=== PATIENT | male | born 1950 | race Caucasian/White ===

== ENCOUNTER 2024-01-20 15:09 | Emergency (ER) | payer MEDICARE, OTHER, SELFPAY ==
[2024-01-20 15:10] VITALS: BP 178/76
--- NOTE | 2024-01-20 16:18 | ED.GENMED ---
History of Present Illness
General
Chief Complaint: Post Operative Problem(s)
Source: patient
Exam Limitations: none
Time Seen by Provider: 01/20/24 15:41
Nursing documentation reviewed up to this point in time: agreed with
Travel History
Have you had any contact with someone who has COVID-19?: No
Do you have any symptoms of coronavirus? Fever > 100 degrees, chills, cough, shortness of breath, sore throat, loss of taste or smell, muscle aches, or headache?: No
History of Present Illness
History of Present Illness:
73 yr old male presents to the ER for evaluation. Patient reports he had varicose vein surgery 3 days ago and today removed dressing and wound started bleeding. He reports he is on Eliquis for A-fib. He denies any pain.
Past History
Past History
ED Past Medical History: HTN and Hypercholesterolemia
ED Past Surgical History: Orthopedic and Tonsilectomy
Social History
Tobacco: Non-smoker
Review of Systems
Review of Systems
Allergies reviewed?: Yes
All Other Systems: ROS reviewed and negative except as documented in HPI and ROS
Constitutional: Reports no symptoms; Denies fever
Musculoskeletal: Reports no symptoms
Skin: Reports other (bleeding from right lower leg wound )
Neurological: Reports no symptoms
Psychiatric: Reports no symptoms
Phy Exam
General Physical Exam
General Presentation: no apparent distress
General age: appears stated age
General Skin: warm and dry
General Habitus: elderly
General Mental: alert
General Hydration: appears well hydrated
Neurological Exam
Neurological Exam: alert and oriented x3
Musculoskeletal Exam
Musculoskeletal Exam: full ROM and other (right lower leg with 1 cm open bleeding wound strong distal pulses + multiple varicosities to right leg )
Skin Exam
Skin Exam: normal color and warm/dry
Psychiatric Exam
Psychiatric Exam: normal mood/affect
Course
Vital Signs
Initial and Last Documented VS:
Initial Vital Signs
Temp Pulse Resp BP Pulse Ox
98.2 F 69 18 178/76 97
01/20/24 15:10 01/20/24 15:10 01/20/24 15:10 01/20/24 15:10 01/20/24 15:10
Last Documented Vital Signs
Temp Pulse Resp BP Pulse Ox
98.2 F 69 18 178/76 97
01/20/24 15:10 01/20/24 15:10 01/20/24 15:10 01/20/24 15:10 01/20/24 15:10
Procedures
Laceration Closure
Right Lower Leg:
Status of Wound: clean
Size of Wound in cm: 1
Description of Wound Edges: sharp
Preparation: cleaned with saline
Anesthesia: 1% Lidocaine with epi
Revision/Debridement: routine- no revision and irrigate-direct pressure
Skin Closure Material: 4-0 nylon
Number of sutures: 3
MDM/Problems Addressed
Differential Diagnosis Includes:
not limited to: bleeding wound
MDM/Problems Addressed:
Patient is a 73-year-old male who has history of varicose veins and had surgery to repair right lower leg varicose vein and removed Steri-Strips today reports wound open. He presented with proximal 1 cm what looks like laceration to the right lower
leg actively bleeding. This was repaired with sutures to close wound. Patient was monitored here no further bleeding.
Will DC back to varicose vein specialist.
Chronic conditions affecting care:
hx of multiple wounds
*Pulse Oximetry
Patient hypoxic: no
*Critical Care Note
Total Time (30-74mins, 75-104mins- exclusive of procedures): Not Applicable
ED Attending Note
-
Portions of this chart may have been created with voice recognition software.� Occasional wrong word or��sound alike� substitutions may have occurred due to the inherent limitations of voice recognition software.
Discharge Plan
Departure
Patient Disposition: Home (Routine Discharge)
Date of Disposition: 01/20/24
Time of Disposition: 17:07
Patient with high blood pressure during this ER visit?: Yes
Condition: Fair
Covid-19: Not Applicable
Discharge Problem:
bleeding wound
Instructions: Bleeding After Surgery
Prescriptions:
No Action
acetaminophen 325 MG tablet
650 mg PO Q4HPRN PRN (Reason: pain)
ranitidine HCl [Zantac Maximum Strength] 150 MG tablet
150 mg PO DAILY
flecainide 50 MG tablet
50 mg PO BID
metoprolol tartrate 50 MG tablet
50 mg PO BID
lisinopril-hydrochlorothiazide 1 EACH tablet
1 ea PO DAILY
morphine 15 MG tablet
30 mg PO BID
rosuvastatin 10 MG tablet
10 mg PO DAILY
apixaban [Eliquis] 5 MG tablet
5 mg PO BID
Referrals:
Sathish Ernandez MD [Family Provider] -
Activity Restrictions/Additional Instructions:
As discussed there were 3 sutures placed in your wound. Keep clean and dry for 24 hours after 24 hours wash twice a day with soap and water pat dry and apply small layer of antibiotic ointment to the area. Follow-up with your surgeon/family
doctor in the next several days for wound evaluation and recheck. The sutures will need to be removed in around 7 to 10 days. Return if any signs of infection increased redness swelling drainage fever chills or bleeding
Interventions
Interventions:
*Risk Screen - Suicide Last Done: 01/20/24 15:10
*General Assessment Last Done: 01/20/24 15:10
*Neglect/Abuse Screening Last Done: 01/20/24 15:10
ED-Skin Assessment Last Done: 01/20/24 15:27
[2024-01-20 17:12] VITALS: BP 168/70
== END 2024-01-20 17:25 | disposition home or self-care (01) ==
LOC: EMR 15:09
PROVIDERS: EMERGENCY PHYSICIAN Emergency Medicine; FAMILY PHYSICIAN Family Medicine
DX: L76.22 Postprocedural hemorrhage of skin and subcutaneous tissue following other procedure (principal); I10 Essential (primary) hypertension; Z79.01 Long term (current) use of anticoagulants
CPT/HCPCS: 99283; 12001

== ENCOUNTER → 2024-01-24 07:21 | Outpatient (REF) | payer MEDICARE, OTHER, SELFPAY ==
[2024-01-24 09:23] LABS: % Basophils 0.7 % (0-2); % Eosinophils 2.6 % (0-6); % Immature Granulocytes 0.3 % (0-0.5); % Lymphocytes 23.4 % (20.5-51.1); % Monocytes 11.2 % (1.7-9.3); % Neutrophils 61.8 % (42.2-75.2); Absolute Basophils 0.1 10^3/uL (0-0.2); Absolute Eosinophils 0.2 10^3/uL (0-0.7); Absolute Lymphocytes 1.7 10^3/uL (1.2-3.4); Absolute Monocytes 0.8 10^3/uL (0.1-0.6); Absolute Neutrophils 4.5 10^3/uL (1.4-6.5); Hemoglobin 12.9 g/dL (13.0-18.0); Mean Corp Hgb Conc. 33.9 g/dL (33.0-37.0); Mean Corpuscular Hgb 33.9 pg (27.0-31.0); Nucleated Red Blood Cells % 0 % (-); Platelet Count 202 10^3/uL (130-400); Red Cell Dist. Width 12.2 % (11.5-14.5); White Blood Cell Count 7.3 10^3/uL (4.8-10.8)
[2024-01-24 09:31] LABS: ALT (SGPT) 30 U/L (0-50); AST (SGOT) 31 U/L (17-59); Albumin 4.4 g/dl (3.5-5.0); Alkaline Phosphatase 71 U/L (38-126); Blood Urea Nitrogen 24 mg/dl (9-20); Calcium 9.6 mg/dl (8.4-10.2); Carbon Dioxide 26 mmol/L (22-30); Chloride 105 mmol/L (98-107); Glucose 101 mg/dl (70-99); HDL Cholesterol 80 mg/dl; LDL Cholesterol, Calculated 49 mg/dl; Potassium 4.4 mmol/L (3.5-5.1); Sodium 135 mmol/L (135-145); Total Bilirubin 0.7 mg/dl (0.2-1.3); Total Cholesterol 139 mg/dl (50-199); Total Protein 7.2 g/dl (6.3-8.2); Triglyceride 53 mg/dl (10-149); Very Low Density Lipoprotein 10 mg/dl (0-30); eGFR > 60.00
[2024-01-24 10:06] LABS: TSH Reflex To Free T4 1.54 uIU/ml (0.47-4.68)
[2024-01-24 10:38] LABS: Folate > 20.0 ng/ml (2.76-20); Vitamin B12 932 pg/ml (239-931)
== END ==
LOC: HWLAB 07:21
PROVIDERS: ATTENDING PHYSICIAN Family Medicine
DX: I10 Essential (primary) hypertension (principal); R71.8 Other abnormality of red blood cells; E53.8 Deficiency of other specified B group vitamins
CPT/HCPCS: 36415; 80053; 80061; 82607; 82746; 84443; 85025

== ENCOUNTER 2024-06-08 14:48 | Observation (INO) | payer MEDICARE, OTHER, SELFPAY ==
[2024-06-08] VITALS (7 sets, daily range): BP systolic 113–167; BP diastolic 24–75; BMI 21.2; BMI 21.1
--- NOTE | 2024-06-08 11:16 | ED.GENMED ---
History of Present Illness
General
Chief Complaint: Skin Problem
Source: patient
Exam Limitations: none
Time Seen by Provider: 06/08/24 10:25
Nursing documentation reviewed up to this point in time: agreed with
History of Present Illness
History of Present Illness:
73 y/o M with afib on eliqui, htn
had a vein surgery 1 mo ago and subsequently developed cellulitis right lower leg
he had keflex 5 days and then switched to bactrim
finished hs 9th day yesterday of 10
but started feeling chills, fatigue, flu-like 2 days ago, sore throat, hoarse voice
then woke up yesterday with itchy bumpy rash all over his body
swollen lip today
no trouble breathing
fel tweak and nearly fell yesterday but no fall
ems checked him out and bitals table
saw the PCP at [facility] whos ent him in
Past History
Past History
ED Past Medical History: HTN and Hypercholesterolemia
ED Past Surgical History: Orthopedic and Tonsilectomy
Social History
Tobacco: Non-smoker
Review of Systems
Review of Systems
Allergies reviewed?: Yes
All Other Systems: Not applicable
Phy Exam
Physical Exam
Physical Exam:
GENERAL: Alert , in no apparent distress
EYE: pupils equal and reactive, no conjunctivitis
NECK: Supple
ENT: pharyngeal erythema, multiple reddened lesions in the mucosa that do not look like vesicles or ulcerations, not petechia, but spots in the mouth
upper lip mildly swollen
slightly hoarse voice
CARDIAC: Regular rate and rhythm .
LUNGS: Clear breath sounds bilaterally, no acute respiratory distress, no wheezes/rales/rhonchi
ABDOMEN: Soft, without focal tenderness, no r/g, no cvat, normal bowel sounds
NEUROLOGICAL: Alert and oriented, no focal neuro deficits
SKIN: Warm and dry,
urticarial/papular rash face, back, chest, arms sparing the palms and soles
some PVD skin changes lower extremieis
no bullae, no sloughing
MUSCULOSKELETAL: No edema, well perfused. neg latonya's sign
PSYCH: Normal and appropriate interaction.
Course
Orders/Labs/Results
Orders:
Orders
06/08/24 Breakfast
Regular
At Your Request: Full Participation
Does patient need a safe tray?: No
06/08/24 11:13
Diphenhydramine [Benadryl] 25 mg IV NOW STA
06/08/24 12:02
Comprehensive Metabolic Panel Urgent
Monotest Urgent
Blood Culture Urgent
[facility] Source: Blood/Venous
Specimen Description:
06/08/24 12:03
COVID-19 Antigen Urgent
Source: Nasal Swab
CRP [C-Reactive Protein] Urgent
Complete Blood Count/With Diff Urgent
ESR [Erythrocyte Sed Rate] Urgent
Lactic Acid Q4H
Comment: CANCEL 2nd LACTIC ACID IF 1st LACTIC ACID IS LESS THAN 2
Rapid Strep Group A Urgent
[facility] Source: Throat/Pharynx
Specimen Description:
Date Specimen was Collected: 06/08/24
Time Specimen was Collected: 11:53
06/08/24 13:16
Urinalysis Reflex To Culture Urgent
Date Specimen was Collected: 06/08/24
Time Specimen was Collected: 12:09
06/08/24 14:29
Admit/Transfer Patient As Directed
Co-Sign Provider:
Level of Care: Observation services
Assign to:: Medical/Surgical
Physician / Group: Khushbu Tran
Diagnosis: Urticaria possible adv rxn Bactrim vs Viral Exanthem
Reason for Hospitalization: Urticaria possible adv rxn Bactrim vs Viral Exanthem
Expected length of stay greater than two midnights?: Yes
ELOS- Estimated Length of Stay in days: 2
I certify the patient meets the requirements for IP care: Yes
PRN Pain Medication Management As Directed
May give lesser potent ordered pain med per pt: Yes
preference::
Protocol:: Medication orders for pain may be administered in a
manner that supports deferring to patient preference
when the pt is:
- Requesting an ordered lesser potent pain medication.
Least to most potent pain medications are defined
as: acetaminophen < NSAID < tramadol < opioids
(morphine, oxycodone, hydromorphone).
- Requesting a lesser dose of the same medication IF
ORDERED.
- Requesting a less intrusive route of administration
if both routes are prescribed by the provider (PO <
IV).
06/08/24 14:34
Code Status As Directed
Resuscitation Status: Full Code
06/08/24 15:37
Acetaminophen [Tylenol] 650 mg PO Q4HPRN PRN
Bisacodyl [Dulcolax] 10 mg RECTAL [id number] PRN
Diphenhydramine [Benadryl] 25 mg PO Q6HPRN PRN
Docusate W/Senna [Senokot-S] 1 tablet PO BIDPRN PRN
Polyethylene Glycol Powder [Miralax] 17 grams PO DAILYPRN PRN
06/08/24 15:37
Activity As Directed
Activity Level: With Assistance
Intake/ Output As Directed
Frequency: Per unit guidelines
Precautions As Directed
Type of Precautions: Other
Comment: fall precautions
Vital Signs As Directed
Frequency: Per unit guidelines
06/08/24 16:00
Morphine Sulfate Extended Rel. [Ms Contin (Extended Release)] 30 mg PO Q8H
06/08/24 20:00
Apixaban [Eliquis] 5 mg PO BID
Budesonide/Formoterol 160/4.5 [Symbicort 160/4.5 Mcg Inhaler] 2 puff INH R BID
Flecainide [Tambocor] 50 mg PO BID
Metoprolol [Lopressor] 50 mg PO BID
06/08/24 22:00
Loratadine [Claritin] 10 mg PO HS
06/09/24 06:00
Basic Metabolic Panel IN AM
Complete Blood Count/No Diff IN AM
Magnesium IN AM
06/09/24 08:00
Amlodipine [Norvasc] 5 mg PO DAILY
Famotidine [Pepcid] 10 mg PO DAILY
Rosuvastatin Calcium [Crestor] 10 mg PO DAILY
06/10/24 06:00
Basic Metabolic Panel IN AM
Complete Blood Count/No Diff IN AM
Magnesium IN AM
06/11/24 06:00
Basic Metabolic Panel IN AM
Complete Blood Count/No Diff IN AM
Magnesium IN AM
06/12/24 06:00
Basic Metabolic Panel IN AM
Complete Blood Count/No Diff IN AM
Magnesium IN AM
06/13/24 06:00
Basic Metabolic Panel IN AM
Complete Blood Count/No Diff IN AM
Magnesium IN AM
06/14/24 06:00
Basic Metabolic Panel IN AM
Complete Blood Count/No Diff IN AM
Magnesium IN AM
06/15/24 06:00
Basic Metabolic Panel IN AM
Complete Blood Count/No Diff IN AM
Magnesium IN AM
Abnormal Lab Results
06/08/24 06/08/24 06/08/24
12:02 12:03 13:16
RBC 4.43 L 10^6/uL
(4.70-6.10)
MCV 96.4 H fL
(80.0-94.0)
MCH 33.6 H pg
(27.0-31.0)
Absolute Neuts (auto) 7.1 H 10^3/uL
(1.4-6.5)
Absolute Lymphs (auto) 1.0 L 10^3/uL
(1.2-3.4)
Absolute Monos (auto) 1.4 H 10^3/uL
(0.1-0.6)
Lymphocytes % 10.3 L %
(20.5-51.1)
Monocytes % 13.5 H %
(1.7-9.3)
Sodium 129 L mmol/L
(135-145)
Chloride 96 L mmol/L
(98-107)
BUN 30 H mg/dl
(9-20)
Glucose 108 H mg/dl
(70-99)
C-Reactive Protein 150.90 H mg/L
(0.0-10.00)
Urine Ketones Trace A
(Negative)
Urine Bilirubin 1+ A
(Negative)
06/08/24 12:03
06/08/24 12:02
Vital Signs
Initial and Last Documented VS:
Initial Vital Signs
Temp Pulse BP Pulse Ox
98.0 F 57 133/62 94
06/08/24 10:15 06/08/24 10:15 06/08/24 10:15 06/08/24 10:15
Last Documented Vital Signs
Temp Pulse Resp BP Pulse Ox
98.5 F 64 17 167/71 95
06/08/24 15:37 06/08/24 15:37 06/08/24 15:37 06/08/24 15:37 06/08/24 15:37
MDM/Problems Addressed
Differential Diagnosis Includes:
serum sickness, SJS, medication allergy, drug rash
MDM/Problems Addressed:
73 y/o M afib on eliquis; had abx keflex and then bactrim (9th day )
2 days flu like symptoms, sore throat, hoarse voice, generalized weakness near fall yesterday, woke up with rash all over, itchy and includig upper lip swelling and throat lesions
afebrile, nontoxic but generally weak
slightly swollen upper lip
some mucus membranes lesions posterior pharynx
urticaria like rash scattered head to legs
mono covid neg, wbc normal, crp 150, na 129
i think this is prob serum sickness but that usually doesn't cause mm involvement; so very unlikely but possibly early SJS; he has no sloughing or bullae;
d/c bactrim
appreciate hyponatremia and pt's generalized weakness
obs
*Critical Care Note
Total Time (30-74mins, 75-104mins- exclusive of procedures): Not Applicable
ED Attending Note
-
Portions of this chart may have been created with voice recognition software.� Occasional wrong word or��sound alike� substitutions may have occurred due to the inherent limitations of voice recognition software.
Discharge Plan
Departure
Patient Disposition: Admit
Date of Disposition: 06/08/24
Time of Disposition: 13:32
Presentation/result/management discussed w/ accepting MD/DO: Hospitalist
Condition: Fair
Covid-19: Not Applicable
Discharge Problem:
Serum sickness due to drug
Interventions
Interventions:
*Risk Screen - Suicide Last Done: 06/08/24 10:17
*General Assessment Last Done: 06/08/24 10:17
*Neglect/Abuse Screening Last Done: 06/08/24 10:17
*ED COVID-19 Vaccine History Last Done: 06/08/24 15:34
[2024-06-08] MEDS: BENADRYL 25 MG IV (12:04)
[2024-06-08 12:18] LABS: % Basophils 0.2 % (0-2); % Immature Granulocytes 0.4 % (0-0.5); % Lymphocytes 10.3 % (20.5-51.1); % Monocytes 13.5 % (1.7-9.3); % Neutrophils 70.6 % (42.2-75.2); Absolute Eosinophils 0.5 10^3/uL (0-0.7); Absolute Monocytes 1.4 10^3/uL (0.1-0.6); Absolute Neutrophils 7.1 10^3/uL (1.4-6.5); Hematocrit 42.7 % (39.0-52.0); Hemoglobin 14.9 g/dL (13.0-18.0); Mean Corp Hgb Conc. 34.9 g/dL (33.0-37.0); Mean Corpuscular Hgb 33.6 pg (27.0-31.0); Mean Corpuscular Volume 96.4 fL (80.0-94.0); Mean Platelet Volume 8.9 fL (7.4-10.4); Nucleated Red Blood Cells % 0 % (-); Platelet Count 229 10^3/uL (130-400); Red Blood Cell Count 4.43 10^6/uL (4.70-6.10); White Blood Cell Count 10.1 10^3/uL (4.8-10.8)
[2024-06-08 12:32] LABS: ALT (SGPT) 30 U/L (0-50); AST (SGOT) 35 U/L (17-59); Albumin 4.3 g/dl (3.5-5.0); Alkaline Phosphatase 79 U/L (38-126); Blood Urea Nitrogen 30 mg/dl (9-20); Calcium 9.5 mg/dl (8.4-10.2); Carbon Dioxide 27 mmol/L (22-30); Chloride 96 mmol/L (98-107); Estimated Creatinine Clearance 58 ml/min; Glucose 108 mg/dl (70-99); Potassium 4.4 mmol/L (3.5-5.1); Sodium 129 mmol/L (135-145); Total Bilirubin 1.1 mg/dl (0.2-1.3); Total Protein 7.1 g/dl (6.3-8.2); eGFR > 60.00
[2024-06-08 12:34] LABS: COVID-19 Antigen Negative (Negative)
[2024-06-08 12:55] LABS: Monotest Negative (Negative)
[2024-06-08 12:58] LABS: Erythrocyte Sed Rate 19 mm/hour (0-20)
[2024-06-08 13:47] LABS: Urine Albumin Trace (Neg - Trace); Urine Bilirubin 1+ (Negative); Urine Character Clear (Clear); Urine Color Yellow; Urine Glucose Negative (Negative); Urine Ketone Trace (Negative); Urine Leukocyte Negative (Negative); Urine Nitrite Negative (Negative); Urine Occult Blood Negative (Negative); Urine Urobilinogen 1+ (Neg - 1+)
--- NOTE | 2024-06-08 13:49 | PHANOTE ---
med rec yasmin(06/08/24)-[facility], [facility]. Will call his physician, Dr. Sathish Ernandez, if possible to obtain confirmation on his medications.
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
--- NOTE | 2024-06-08 15:55 | CON.ID ---
Consultation
-
Date/Time Consultation Requested: June 08, 2024 1517
Date/Time Consultation Performed: June 08, 2024 1600
Requesting Provider: Dr.We-Chun Tran
Performing Provider: Dr. Rosaura Boss
Reason for Consultation: Diffuse rash on Bactrim
Chief Complaint / Past History
Chief Complaint
Rash
History of Present Illness
73-year-old male with history of atrial fibrillation, varicose veins who recently underwent right lower extremity vein phlebectomy x5 at [facility] on May 15, 2024. Postop he had right lower extremity swelling and redness. He was
prescribed 5 days of cephalexin. However there was still residual redness and therefore he was prescribed 10 days of Bactrim. 2 days ago he woke up with sore throat. During the day he started feeling very weak. Yesterday he developed rash which
started on his face then spread throughout his body. Rash is very itchy. No fever. No chills. Today his lips started swelling. He saw his PCP who sent him to the ER. Patient reports he took 9 days of the Bactrim out of 10. He stopped taking
it 2 days ago. The rash is stable and not worse. Never had Bactrim in the past.
Past History
Additional Past Medical History:
Hypertension
Dyslipidemia
Atrial fibrillation on Eliquis
COPD
Chronic pain
Varicose veins s/p RLE phlebectomy 05/15/24
Allergy History:
sulfamethoxazole [From Bactrim] Allergy (Verified 06/08/24 10:16)
Rash
trimethoprim [From Bactrim] Allergy (Verified 06/08/24 10:16)
Rash
Medications Reviewed: Yes
Current Antibiotics:
none
Social History
Tobacco: Former Smoker
Alcohol: None
Drug: None
Personal:
Living: Other ([facility])
Family History
Family History: Not Pertinent
Review of Systems
Review of Systems
General: Change in Appetite; Negative Fever or Chills
HEENT: Pharyngitis; Negative Sinus Problems or Headache
Cardiovascular: Negative Chest Pain or Dyspnea
Respiratory: Negative Dyspnea or Cough
Genital / Urological: Negative Dysuria
Endocrine: Weakness and Fatigue
Skin / Hair / Nails: Rash
Neurological: Negative Headache or Dizziness
All systems: All other systems were reviewed and were negative
Vital Signs
Temp Pulse Resp BP Pulse Ox
98.5 F 64 17 167/71 95
06/08/24 15:37 06/08/24 15:37 06/08/24 15:37 06/08/24 15:37 06/08/24 15:37
Physical Exam
Physical Exam
Constitutional: No Acute Distress
Eyes: No Conjunctival Hemorrhage and Sclera Anicteric
Pharynx: Benign; Negative Erythema
Oral: Other (+ upper>lower lip edema); Negative Ulcers
Cardiovascular: Regular Rate and S1/S2
Pulmonary: Clear
Gastrointestinal: Soft, Non Tender, Non Distended and Normal Bowel Sounds
Extremities: Venous Insufficiency (BLE, significant prominent veins); Negative Erythema
Skin: Rash (Diffuse maculopapular rash from face to torso and all 4 limbs)
Neurological: AO x 3
Lab / Diagnostic Study Results
06/08/24 12:03
06/08/24 12:02
Abs Immat Gran (auto) 0.0 10^3/uL (0-0.05) 06/08/24 12:03
Absolute Neuts (auto) 7.1 10^3/uL (1.4-6.5) H 06/08/24 12:03
Absolute Lymphs (auto) 1.0 10^3/uL (1.2-3.4) L 06/08/24 12:03
Absolute Monos (auto) 1.4 10^3/uL (0.1-0.6) H 06/08/24 12:03
Absolute Basos (auto) 0.0 10^3/uL (0-0.2) 06/08/24 12:03
Immature Gran % 0.4 % (0-0.5) 06/08/24 12:03
Neutrophils % 70.6 % (42.2-75.2) 06/08/24 12:
Lymphocytes % 10.3 % (20.5-51.1) L 06/08/24 12:03
Monocytes % 13.5 % (1.7-9.3) H 06/08/24 12:03
Eosinophils % 5.0 % (0-6) 06/08/24 12:03
Basophils % 0.2 % (0-2) 06/08/24 12:03
ESR 19 mm/hour (0-20) 06/08/24 12:03
Lactic Acid Cancelled 06/08/24 15:15
C-Reactive Protein 150.90 mg/L (0.0-10.00) H 06/08/24 12:03
Microbiology Results
Micro:
06/08/24 12:03 Streptococcus Screen ([facility]) - Pending
Throat/Pharynx Streptococcus Rapid Screen - Final
Rapid Strep Screen (Group A) Negative
06/08/24 12:02 Blood Culture - Pending
Blood/Venous
Assessment / Plan
# Sulfa drug reaction with lip swelling, pruritic generalized rash.
- Agree with discontinuing offending drug.
- Can continue anti-histamines, supportive care.
- No objection to steroid.
Care Review
Plan reviewed with: Physician (Dr. Tran)
[2024-06-08] MEDS: MS CONTIN (EXTENDED RELEASE) 30 MG PO ×2 (16:19→23:37)
[2024-06-08] MEDS: MEDROL 24 MG PO (16:49)
[2024-06-08] MEDS: TYLENOL 650 MG PO (16:56)
[2024-06-08] MEDS: CLARITIN 10 MG PO ×2 (20:35→20:37)
[2024-06-08] MEDS: TAMBOCOR 50 MG PO (20:35)
[2024-06-08] MEDS: LOPRESSOR 50 MG PO (20:36)
[2024-06-08] MEDS: ELIQUIS 5 MG PO (20:37)
[2024-06-08] MEDS: SYMBICORT 160/4.5 MCG INHALER 2 PUFF INH (22:22)
[2024-06-09 06:00] VITALS: BMI 20.7
--- NOTE | 2024-06-09 07:10 | W.PN.HOSP.TC ---
Today's Communication/Plan
-
discharge
Assessment / Plan
Assessment / Plan
Physical Exam
General: No pallor, cyanosis, or jaundice.
HEENT: Throat clear. PERRLA Normocephalic atraumatic
NECK: Supple. No JVD Carotid Bruits
RESPIRATORY: Lungs clear to auscultation. No crackles wheezes stridor
CVS: S1, S2 normal. RRR. No murmur, rub or gallop.
ABDOMEN: Soft, non-tender. No distension. BS+/normal.
EXTREMITIES: No peripheral cyanosis or edema.
Derm: diffuse maculopapular rash no involvement oral mucosa or eyes noted, since improved from initial presentation
WELDER TACK: AOx3. No focal deficits.
IMPRESSION:
73M A-fib Eliquis hypertension hyperlipidemia COPD chronic pain opioid dependent from [facility] independent living presents with new onset diffuse maculopapular rash after 2 days flulike symptoms generalized weakness fever chills night sweats.
Patient had been placed on 10 days of oral antibiotics starting with Keflex and switched to Bactrim, on ninth day of planned antibiotic regimen. Abx were for cellulitis that developed after RLE stab phlebectomy done at [facility]. Denies ever having
this reaction/rash before.. Itching resolved with as needed Benadryl given in the ED. Vital signs otherwise stable afebrile here. Mild hyponatremia 129 elevated CRP rest of labs unremarkable no leukocytosis.
PLAN:
#Rash flulike symptoms
#Possible adverse reaction to Bactrim
#Possible viral exanthem
Observation MedSurg
Discontinue further bactrim use
Benadryl as needed itching
Claritin bedtime
Continue home famotidine
Monospot negative
ID eval appreciated
Symptoms since improved
#A-fib
#Coronary artery disease
#Angina
#Hyperlipidemia
#Hypertension
Continue home Eliquis flecainide and metoprolol
Continue home ranitidine
Continue statin
cont home Amlodipine
#Mild hyponatremia
Hold home hydrochlorothiazide
Hyponatremia since improved
#COPD
Stable respiratory status on room air
Continue home Symbicort
#Chronic pain
Continue home morphine
dvt ppx Eliquis
Full Code
Medically stable for discharge home with outpatient follow up recommendations
Total Time Preparing Discharge ___40____ minutes including examination of the patient, summary of the hospital stay, instructions for continuing care to all relevant caregivers; and preparation of discharge records, prescriptions, and referral
forms if necessary.
Anticipated Discharge: Today
Subjective/Interval History
-
Date of Service: June 09, 2024
Seen and examined at bedside in no acute distress sitting up comfortably in chair. Reports feeling well rash/urticaria significantly improved. Itching resolved. Denies new acute issues. Eager to go home.
Objective Data
-
Labs:
Laboratory Results
06/09/24
06:23
WBC Pending
Hgb Pending
Hct Pending
Plt Count Pending
Sodium Pending
Potassium Pending
Chloride Pending
Carbon Dioxide Pending
BUN Pending
Creatinine Pending
Glucose Pending
Calcium Pending
Vital Signs:
Vital Signs
Temp Pulse Resp BP Pulse Ox
97.8 F 53 18 122/64 96
06/08/24 23:00 06/08/24 23:00 06/08/24 23:00 06/08/24 23:00 06/08/24 23:00
I&O
06/08/24 06/09/24 06/10/24
06:59 06:59 06:59
Intake Total 960 / 960
Balance 960 / 960
[2024-06-09 07:15] VITALS: BP 145/62
[2024-06-09] MEDS: SYMBICORT 160/4.5 MCG INHALER 2 PUFF INH (07:56)
[2024-06-09 08:02] LABS: Hematocrit 41.3 % (39.0-52.0); Hemoglobin 14.8 g/dL (13.0-18.0); Mean Corp Hgb Conc. 35.8 g/dL (33.0-37.0); Mean Corpuscular Hgb 33.9 pg (27.0-31.0); Mean Corpuscular Volume 94.5 fL (80.0-94.0); Mean Platelet Volume 9.5 fL (7.4-10.4); Platelet Count 260 10^3/uL (130-400); Red Blood Cell Count 4.37 10^6/uL (4.70-6.10); Red Cell Dist. Width 11.6 % (11.5-14.5); White Blood Cell Count 6.4 10^3/uL (4.8-10.8)
[2024-06-09] MEDS: CRESTOR 10 MG PO (08:15)
[2024-06-09] MEDS: NORVASC 5 MG PO (08:15)
[2024-06-09] MEDS: ELIQUIS 5 MG PO (08:15)
[2024-06-09] MEDS: MS CONTIN (EXTENDED RELEASE) 30 MG PO (08:16)
[2024-06-09] MEDS: LOPRESSOR 50 MG PO (08:17)
[2024-06-09] MEDS: TAMBOCOR 50 MG PO (08:17)
[2024-06-09] MEDS: PEPCID 10 MG PO (08:28)
[2024-06-09 08:42] LABS: Blood Urea Nitrogen 32 mg/dl (9-20); Calcium 9.8 mg/dl (8.4-10.2); Carbon Dioxide 26 mmol/L (22-30); Chloride 97 mmol/L (98-107); Estimated Creatinine Clearance 69 ml/min; Glucose 121 mg/dl (70-99); Magnesium 2.4 mg/dl (1.6-2.3); Potassium 4.2 mmol/L (3.5-5.1); Sodium 131 mmol/L (135-145); eGFR > 60.00
[2024-06-09] MEDS: MEDROL 20 MG PO (09:33)
--- NOTE | 2024-06-09 10:09 | W.PN.ID1 ---
Date of Service
Date of Service: June 09, 2024
Today's Communication
Continue steroid.
Assessment / Plan
# Sulfa drug reaction with lip swelling, pruritic generalized rash.
- Rash. lip swelling improving on steroid.
- Continue Medrol Humza.
- OK to dc home from ID standpoint.
Chief Complaint
-: Other (Rash)
Subjective / Review of Systems
Feels great. No more itching.
Vital Signs / Physical Exam
Vital Signs
Vital Signs
Temp Pulse Resp BP Pulse Ox
98.3 F 68 18 145/62 93
06/09/24 07:15 06/09/24 08:17 06/09/24 07:58 06/09/24 08:17 06/09/24 07:58
Physical Exam
Constitutional: No Acute Distress and Comfortable
Oropharyngeal: Other (lip swelling resolved)
Skin: Rash (Diffuse maculopapular rash decreasing)
Objective Data
Lab Data
Lab Results
06/09/24 06:23
06/09/24 06:23
ESR 19 mm/hour (0-20) 06/08/24 12:03
Estimated Creat Clear 69 ml/min 06/09/24 06:23
Lactic Acid Cancelled 06/08/24 15:15
Total Bilirubin 1.1 mg/dl (0.2-1.3) 06/08/24 12:02
AST 35 U/L (17-59) 06/08/24 12:02
ALT 30 U/L (0-50) 06/08/24 12:02
Alkaline Phosphatase 79 U/L (38-126) 06/08/24 12:02
C-Reactive Protein 150.90 mg/L (0.0-10.00) H 06/08/24 12:03
Most recent labs reviewed.
Micro Results:
06/08/24 12:03 Streptococcus Screen ([facility]) - Preliminary
Throat/Pharynx Culture in Progress
Streptococcus Rapid Screen - Final
Rapid Strep Screen (Group A) Negative
06/08/24 12:02 Blood Culture - Pending
Blood/Venous
Care Review
Plan reviewed with: Physician (Dr. Tran)
[2024-06-09 10:53] VITALS: BMI 20.7
--- NOTE | 2024-06-09 12:12 | W.DCSUMMARY ---
Discharge Summary
Discharge Data
Date of Admission: 06/08/24
Date of Discharge: 06/09/24
-
Pending Results: No
Discharge Plan
-
Patient Disposition: Home (Routine Discharge)
Discharge Diagnosis/Procedures: Likely Drug Rash Reaction to Bactrim
Possible Sulfa Drug Reaction
Mild Hyponatremia
Hypertension
Atrial Fibrillation
Condition: Good
Diet: Regular
Activity: As tolerated
Driving Restrictions: As prior to admission
Blood Work: Please repeat BMP with primary care provider in 1 week of discharge
Activity Restrictions/Additional Instructions:
Please follow up with primary care provider in 1 week of discharge.
For drug rash reaction to Bactrim, you've been prescribed Benadryl as needed for itching, bedtime Claritin, and a medrol steroid taper:
16 mg (4 tabs) day 1, 12 mg (3 tabs) day 2, 8 mg (2 tabs) day 3, 4 mg (1 tab) day 4, then stop.
Hydrochlorothiazide has been placed on hold due to hyponatremia. Please follow up with your primary care provider to determine when safe to resume, if unnecessary to resume, or if an alternative medication is required.
Please take medications as prescribed/recommended and follow up with primary care provider and/or other healthcare provider involved in your care for refills and/or further adjustment to your medication regimen as necessary.
Referrals:
Sathish Ernandez MD [Family Provider] - in one week
Prescriptions:
New
diphenhydramine HCl 25 mg Capsule
25 mg PO Q6HPRN PRN (Reason: itching) Qty: 20 0RF
loratadine 10 mg Tablet
10 mg PO HS Qty: 4 0RF
methylprednisolone [Medrol] 4 mg tablet
4 mg PO DIRECTED Qty: 10 0RF
Rx Instructions:
16mg (4tabs) day1, 12mg (3tabs) day2, 8mg (2tabs) day3, 4mg (1tab) day4, then stop
Continued
acetaminophen 325 MG tablet
650 mg PO Q4HPRN PRN (Reason: mild pain)
flecainide 50 MG tablet
50 mg PO BID
metoprolol tartrate 50 MG tablet
50 mg PO BID
rosuvastatin 10 MG tablet
10 mg PO DAILY
Eliquis 5 MG tablet
5 mg PO BID
amlodipine 5 mg Tablet
5 mg PO DAILY
morphine 30 mg Tablet Extended Release
30 mg PO Q8H
famotidine 20 mg Tablet
20 mg PO DAILY
budesonide-formoterol [Symbicort] 160-4.5 mcg/actuation Hfa Aerosol Inhaler
2 puff INHALATION R BID
Held
hydrochlorothiazide 25 mg Tablet
25 mg PO DAILY
Hold Instructions: Hold due to Hyponatremia. Follow up with primary care provider to determine when safe to resume, if unnecessary to resume, or if an alternative medication is necessary instead.
Discharge Orders:
Discharge Patient (As Directed); Ordered 06/09/24
Ordered By: Khushub Tran
Discharge Date and Time
Print Language: BENINESE
[2024-06-09 12:51] VITALS: BP 151/75
--- NOTE | 2024-06-09 14:19 | CM ---
IA completed with pt at bedside.
Pt is from [facility] where he lives with his and is indep at baseline.
Pt has no equip and no hx of VN/SNF use
Pt is OBS and for dc today ARELLANO issued and signed.
PCP; Sathish Ernandez
Pharm; [facility]
PLAN; home with no needs
== END 2024-06-09 13:08 | disposition home or self-care (01) ==
LOC: 3 WEST ACU 14:48
PROVIDERS: Physician Assistant; ADMITTING PHYSICIAN Internal Medicine; CONSULT PHYSICIAN Internal Medicine Infectious Disease; EMERGENCY PHYSICIAN Emergency Medicine; FAMILY PHYSICIAN Family Medicine
DX: R21 Rash and other nonspecific skin eruption (principal); R22.0 Localized swelling, mass and lump, head; E87.1 Hypo-osmolality and hyponatremia; I48.91 Unspecified atrial fibrillation; I10 Essential (primary) hypertension; E78.00 Pure hypercholesterolemia, unspecified; I25.119 Atherosclerotic heart disease of native coronary artery with unspecified angina pectoris; E78.5 Hyperlipidemia, unspecified; J44.9 Chronic obstructive pulmonary disease, unspecified; G89.29 Other chronic pain; F11.20 Opioid dependence, uncomplicated; Z79.01 Long term (current) use of anticoagulants; Z87.891 Personal history of nicotine dependence; Z88.1 Allergy status to other antibiotic agents; Z88.2 Allergy status to sulfonamides; Z79.51 Long term (current) use of inhaled steroids; Z11.52 Encounter for screening for COVID-19
CPT/HCPCS: 80048; 80053; 81003; 83605; 83735; 85025; 85027; 85652; 86140; 86308; 87040; 87070; 87811; 87880; 94640; 96374; 99284; G0378

== ENCOUNTER → 2024-10-03 07:06 | Outpatient (REF) | payer MEDICARE, OTHER, SELFPAY ==
[2024-10-03 09:23] LABS: % Eosinophils 4.2 % (0-6); % Immature Granulocytes 0.2 % (0-0.5); % Lymphocytes 33.4 % (20.5-51.1); % Monocytes 11.9 % (1.7-9.3); % Neutrophils 49.3 % (42.2-75.2); Absolute Basophils 0.1 10^3/uL (0-0.2); Absolute Eosinophils 0.3 10^3/uL (0-0.7); Absolute Lymphocytes 2.1 10^3/uL (1.2-3.4); Absolute Monocytes 0.7 10^3/uL (0.1-0.6); Hematocrit 42.3 % (39.0-52.0); Hemoglobin 13.7 g/dL (13.0-18.0); Mean Corp Hgb Conc. 32.4 g/dL (33.0-37.0); Mean Corpuscular Volume 101.9 fL (80.0-94.0); Mean Platelet Volume 9.5 fL (7.4-10.4); Nucleated Red Blood Cells % 0 % (-); Platelet Count 215 10^3/uL (130-400); Red Blood Cell Count 4.15 10^6/uL (4.70-6.10); Red Cell Dist. Width 12.5 % (11.5-14.5); White Blood Cell Count 6.1 10^3/uL (4.8-10.8)
[2024-10-03 10:03] LABS: ALT (SGPT) 21 U/L (0-50); AST (SGOT) 26 U/L (17-59); Albumin 4.6 g/dl (3.5-5.0); Alkaline Phosphatase 75 U/L (38-126); Blood Urea Nitrogen 20 mg/dl (9-20); Calcium 9.9 mg/dl (8.4-10.2); Carbon Dioxide 26 mmol/L (22-30); Chloride 103 mmol/L (98-107); Glucose 98 mg/dl (70-99); HDL Cholesterol 80 mg/dl; LDL Cholesterol, Calculated 43 mg/dl; Potassium 4.7 mmol/L (3.5-5.1); Sodium 141 mmol/L (135-145); Total Bilirubin 0.8 mg/dl (0.2-1.3); Total Cholesterol 139 mg/dl (50-199); Total Protein 7.6 g/dl (6.3-8.2); Triglyceride 82 mg/dl (10-149); Very Low Density Lipoprotein 16 mg/dl (0-30); eGFR > 60.00
== END ==
LOC: HWLAB 07:06
PROVIDERS: ATTENDING PHYSICIAN Family Medicine
DX: I10 Essential (primary) hypertension (principal); R71.8 Other abnormality of red blood cells
CPT/HCPCS: 36415; 80053; 80061; 85025

== ENCOUNTER → 2024-10-18 13:28 | Outpatient (REF) | payer MEDICARE, OTHER, SELFPAY ==
[2024-10-18 15:38] LABS: INR 1.16; PT 15.3 Sec (11.4-14.6)
[2024-10-18 15:39] LABS: APTT 39.4 Sec (23.4-35.0)
[2024-10-18 15:43] LABS: ALT (SGPT) 24 U/L (0-50); AST (SGOT) 26 U/L (17-59); Albumin 4.6 g/dl (3.5-5.0); Alkaline Phosphatase 67 U/L (38-126); Blood Urea Nitrogen 25 mg/dl (9-20); Calcium 9.6 mg/dl (8.4-10.2); Carbon Dioxide 26 mmol/L (22-30); Chloride 100 mmol/L (98-107); Glucose 90 mg/dl (70-99); Potassium 5.2 mmol/L (3.5-5.1); Sodium 136 mmol/L (135-145); Total Bilirubin 0.7 mg/dl (0.2-1.3); Total Protein 7.2 g/dl (6.3-8.2); eGFR > 60.00
[2024-10-18 15:59] LABS: % Basophils 1.1 % (0-2); % Eosinophils 4.6 % (0-6); % Immature Granulocytes 0.1 % (0-0.5); % Lymphocytes 36.1 % (20.5-51.1); % Monocytes 13.1 % (1.7-9.3); Absolute Basophils 0.1 10^3/uL (0-0.2); Absolute Eosinophils 0.3 10^3/uL (0-0.7); Absolute Lymphocytes 2.7 10^3/uL (1.2-3.4); Absolute Neutrophils 3.3 10^3/uL (1.4-6.5); Hematocrit 41.4 % (39.0-52.0); Hemoglobin 13.4 g/dL (13.0-18.0); Mean Corp Hgb Conc. 32.4 g/dL (33.0-37.0); Mean Corpuscular Hgb 32.8 pg (27.0-31.0); Mean Corpuscular Volume 101.2 fL (80.0-94.0); Mean Platelet Volume 9.7 fL (7.4-10.4); Nucleated Red Blood Cells % 0 % (-); Platelet Count 239 10^3/uL (130-400); Red Blood Cell Count 4.09 10^6/uL (4.70-6.10); Red Cell Dist. Width 12.5 % (11.5-14.5); White Blood Cell Count 7.4 10^3/uL (4.8-10.8)
== END ==
LOC: HWLAB 13:28
PROVIDERS: ATTENDING PHYSICIAN Orthopaedic Surgery; FAMILY PHYSICIAN Family Medicine
DX: Z01.818 Encounter for other preprocedural examination (principal); E11.9 Type 2 diabetes mellitus without complications; R79.1 Abnormal coagulation profile
CPT/HCPCS: 36415; 80053; 83036; 85025; 85610; 85730

== ENCOUNTER 2024-11-27 08:29 | Emergency (ER) | payer MEDICARE, OTHER, SELFPAY ==
[2024-11-27 08:32] VITALS: BMI 21.2
[2024-11-27 08:33] VITALS: BP 145/68
[2024-11-27 08:34] VITALS: BP 145/68
[2024-11-27 09:00] VITALS: BP 135/55
--- NOTE | 2024-11-27 09:16 | ED.GENMED ---
History of Present Illness
General
Chief Complaint: Male Genito-Urinary Symptoms
Source: patient
Exam Limitations: none
Time Seen by Provider: 11/27/24 08:33
Nursing documentation reviewed up to this point in time: agreed with
History of Present Illness
History of Present Illness:
74-year-old male past medical history of A-fib currently on Eliquis, hypertension, recent left-sided knee replacement 1 week ago presenting to the emergency department today with concerns of a red tinge to his urine this morning. Denies any pain
other than to his knee. Denies any significant urinary symptoms fevers.
Past History
Past History
ED Past Medical History: HTN and Hypercholesterolemia
ED Past Surgical History: Orthopedic and Tonsilectomy
Social History
Tobacco: Non-smoker
Review of Systems
Review of Systems
Allergies reviewed?: Yes
All Other Systems: ROS reviewed and negative except as documented in HPI and ROS
Phy Exam
Physical Exam
Physical Exam:
GENERAL: Alert , in no apparent distress
EYE: pupils equal and reactive
NECK: Supple, no significant adenopathy.
ENT: o/p clr, mmm.
CARDIAC: Regular rate and rhythm .
LUNGS: Clear breath sounds bilaterally, no acute respiratory distress, no wheezes/rales/rhonchi
ABDOMEN: Soft, without focal tenderness, no r/g, no cvat
NEUROLOGICAL: Alert and oriented, no focal neuro deficits
SKIN: Warm and dry, skin intact.
MUSCULOSKELETAL: No edema, well perfused.
PSYCH: Normal and appropriate interaction.
Course
Orders/Labs/Results
Orders:
Orders
11/27/24 09:02
BMP [Basic Metabolic Panel] Urgent
CBC/With Diff [Complete Blood Count/With Diff] Urgent
Urinalysis Reflex To Culture Urgent
Date Specimen was Collected: 11/27/24
Time Specimen was Collected: 08:56
11/27/24 10:58
CT Abd/pel Without Iv Or Oral Urgent
Comment:
Reason For Exam: back pain hematuria
Abnormal Lab Results
11/27/24
09:02
WBC 17.5 H 10^3/uL
(4.8-10.8)
RBC 2.92 L 10^6/uL
(4.70-6.10)
Hgb 9.9 L g/dL
(13.0-18.0)
Hct 29.0 L %
(39.0-52.0)
MCV 99.3 H fL
(80.0-94.0)
MCH 33.9 H pg
(27.0-31.0)
Abs Immat Gran (auto) 0.1 H 10^3/uL
(0-0.05)
Absolute Neuts (auto) 14.7 H 10^3/uL
(1.4-6.5)
Absolute Monos (auto) 1.3 H 10^3/uL
(0.1-0.6)
Immature Gran % 0.6 H %
(0-0.5)
Neutrophils % 83.9 H %
(42.2-75.2)
Lymphocytes % 7.2 L %
(20.5-51.1)
Sodium 132 L mmol/L
(135-145)
BUN 34 H mg/dl
(9-20)
Glucose 110 H mg/dl
(70-99)
Urine Ketones Trace A
(Negative)
11/27/24 09:02
11/27/24 09:02
Vital Signs
Initial and Last Documented VS:
Initial Vital Signs
BP
145/68
11/27/24 08:33
Last Documented Vital Signs
Temp Pulse Resp BP Pulse Ox
98.5 F 76 18 135/83 83
11/27/24 08:34 11/27/24 08:34 11/27/24 08:34 11/27/24 11:00 11/27/24 11:21
MDM/Problems Addressed
MDM/Problems Addressed:
74-year-old male presenting to the emergency department today with concerns of red discoloration of his urine this morning no pain associated. Vital signs normal on arrival. No reproducible discomfort to the abdomen or back. Patient also later in
his stay mention that he is had some diarrhea which has been improving after Imodium dose yesterday. Denies any chest pain shortness of breath lightheadedness. Hemoglobin of 9.9 slightly lower than his baseline but recently did have surgery.
Bleeding does not look to be in large volume. White blood cell count of 17.5. Patient generally well-appearing no distress no fevers normal vital signs. Not tachycardic. Able to tolerate by mouth without difficulty. CT scan showing some
colitis. Symptoms are improving according the patient he was advised for close outpatient follow-up in this regard otherwise will follow-up closely with urology for any ongoing hematuria. Return precautions given.
*Critical Care Note
Total Time (30-74mins, 75-104mins- exclusive of procedures): Not Applicable
ED Attending Note
-
Portions of this chart may have been created with voice recognition software.� Occasional wrong word or��sound alike� substitutions may have occurred due to the inherent limitations of voice recognition software.
Discharge Plan
Departure
Patient Disposition: Home (Routine Discharge)
Date of Disposition: 11/27/24
Time of Disposition: 13:44
Patient with high blood pressure during this ER visit?: No
Condition: Good
Covid-19: Not Applicable
Discharge Problem:
Pancolitis, Hematuria
Instructions: Blood in the Urine (Hematuria), Adult (DC)
Prescriptions:
No Action
acetaminophen 325 MG tablet
650 mg PO Q4HPRN PRN (Reason: mild pain)
flecainide 50 MG tablet
50 mg PO BID
metoprolol tartrate 50 MG tablet
50 mg PO BID
rosuvastatin 10 MG tablet
10 mg PO DAILY
Eliquis 5 MG tablet
5 mg PO BID
amlodipine 5 mg Tablet
5 mg PO DAILY
morphine 30 mg Tablet Extended Release
30 mg PO Q8H
famotidine 20 mg Tablet
20 mg PO DAILY
hydrochlorothiazide 25 mg Tablet
25 mg PO DAILY
budesonide-formoterol [Symbicort] 160-4.5 mcg/actuation Hfa Aerosol Inhaler
2 puff INHALATION R BID
diphenhydramine HCl 25 mg Capsule
25 mg PO Q6HPRN PRN (Reason: itching) Qty: 20 0RF
loratadine 10 mg Tablet
10 mg PO HS Qty: 4 0RF
methylprednisolone [Medrol] 4 mg tablet
4 mg PO DIRECTED Qty: 10 0RF
Rx Instructions:
16mg (4tabs) day1, 12mg (3tabs) day2, 8mg (2tabs) day3, 4mg (1tab) day4, then stop
Referrals:
Sathish Ernandez MD [Family Provider] -
Maximino Alas MD [Active] - Follow up in 5-7 days
Activity Restrictions/Additional Instructions:
You came to the emergency department today with concerns of diarrhea and hematuria. Please follow closely with urology. Please make sure you stay hydrated and take Imodium return for any worsening, new or concerning symptoms.
Interventions
Interventions:
*Risk Screen - Suicide Last Done: 11/27/24 08:35
*General Assessment Last Done: 11/27/24 08:36
*Neglect/Abuse Screening Last Done: 11/27/24 08:35
ED- Fall Risk Assessment Last Done: 11/27/24 08:37
*ED COVID-19 Vaccine History Last Done: 11/27/24 08:35
ED-Male Genitourinary Assessment Last Done: 11/27/24 09:05
Discharge Date and Time
Print Language: NORTH KOREAN
[2024-11-27 09:31] LABS: % Basophils 0.3 % (0-2); % Eosinophils 0.3 % (0-6); % Immature Granulocytes 0.6 % (0-0.5); % Lymphocytes 7.2 % (20.5-51.1); % Monocytes 7.7 % (1.7-9.3); % Neutrophils 83.9 % (42.2-75.2); Absolute Basophils 0.1 10^3/uL (0-0.2); Absolute Eosinophils 0.1 10^3/uL (0-0.7); Absolute Immature Granulocytes 0.1 10^3/uL (0-0.05); Absolute Lymphocytes 1.3 10^3/uL (1.2-3.4); Absolute Monocytes 1.3 10^3/uL (0.1-0.6); Absolute Neutrophils 14.7 10^3/uL (1.4-6.5); Hemoglobin 9.9 g/dL (13.0-18.0); Mean Corp Hgb Conc. 34.1 g/dL (33.0-37.0); Mean Corpuscular Hgb 33.9 pg (27.0-31.0); Mean Corpuscular Volume 99.3 fL (80.0-94.0); Mean Platelet Volume 8.8 fL (7.4-10.4); Nucleated Red Blood Cells % 0 % (-); Platelet Count 332 10^3/uL (130-400); Red Blood Cell Count 2.92 10^6/uL (4.70-6.10); Red Cell Dist. Width 13.9 % (11.5-14.5); White Blood Cell Count 17.5 10^3/uL (4.8-10.8)
[2024-11-27 09:46] LABS: Blood Urea Nitrogen 34 mg/dl (9-20); Calcium 8.7 mg/dl (8.4-10.2); Carbon Dioxide 24 mmol/L (22-30); Chloride 100 mmol/L (98-107); Estimated Creatinine Clearance 70 ml/min; Glucose 110 mg/dl (70-99); Potassium 3.9 mmol/L (3.5-5.1); Sodium 132 mmol/L (135-145); eGFR > 60.00
[2024-11-27 10:33] VITALS: BP 107/68
[2024-11-27 10:50] LABS: Urine Albumin Trace (Neg - Trace); Urine Bilirubin Negative (Negative); Urine Character Clear (Clear); Urine Color Yellow; Urine Glucose Negative (Negative); Urine Ketone Trace (Negative); Urine Leukocyte Negative (Negative); Urine Nitrite Negative (Negative); Urine Occult Blood Negative (Negative); Urine Specific Gravity 1.015 (<1.030); Urine Urobilinogen Negative (Neg - 1+)
[2024-11-27 11:00] VITALS: BP 135/83
[2024-11-27 14:34] VITALS: BP 130/80
== END 2024-11-27 14:38 | disposition home or self-care (01) ==
LOC: EMR 08:29
PROVIDERS: Physician Assistant; EMERGENCY PHYSICIAN Student in an Organized Health Care Education/Training Program; FAMILY PHYSICIAN Family Medicine
DX: R31.9 Hematuria, unspecified (principal); K52.9 Noninfective gastroenteritis and colitis, unspecified; I48.91 Unspecified atrial fibrillation; I10 Essential (primary) hypertension; G47.30 Sleep apnea, unspecified; Z79.01 Long term (current) use of anticoagulants; Z96.652 Presence of left artificial knee joint; Z98.890 Other specified postprocedural states; Z88.1 Allergy status to other antibiotic agents; Z88.2 Allergy status to sulfonamides
CPT/HCPCS: 99284; 74176; 80048; 81003; 85025

== ENCOUNTER 2024-11-30 08:06 | Emergency (ER) | payer MEDICARE, OTHER, SELFPAY ==
[2024-11-30 08:10] VITALS: BP 142/64
[2024-11-30 08:31] LABS: % Basophils 0.7 % (0-2); % Immature Granulocytes 0.5 % (0-0.5); % Lymphocytes 15.8 % (20.5-51.1); Absolute Basophils 0.1 10^3/uL (0-0.2); Absolute Eosinophils 0.4 10^3/uL (0-0.7); Absolute Immature Granulocytes 0.1 10^3/uL (0-0.05); Absolute Lymphocytes 1.8 10^3/uL (1.2-3.4); Absolute Monocytes 1.2 10^3/uL (0.1-0.6); Hematocrit 31.7 % (39.0-52.0); Hemoglobin 10.7 g/dL (13.0-18.0); Mean Corp Hgb Conc. 33.8 g/dL (33.0-37.0); Mean Corpuscular Hgb 33.4 pg (27.0-31.0); Mean Corpuscular Volume 99.1 fL (80.0-94.0); Mean Platelet Volume 8.4 fL (7.4-10.4); Nucleated Red Blood Cells % 0 % (-); Platelet Count 362 10^3/uL (130-400); White Blood Cell Count 11.5 10^3/uL (4.8-10.8)
--- NOTE | 2024-11-30 08:36 | ED.GENMED ---
History of Present Illness
<David Hernandez Jr., PA-C - Last Filed: 11/30/24 11:09>
General
Chief Complaint: Post Operative Problem(s)
Source: patient and spouse
Exam Limitations: none
Time Seen by Provider: 11/30/24 08:17
Nursing documentation reviewed up to this point in time: agreed with
History of Present Illness
History of Present Illness:
74-year-old male with past medical history of A-fib previously on Eliquis. Was holding the medication due to hematuria recently and recent surgery. He had surgery 3 weeks ago. Today he is presenting with concerns of left-sided thigh hardness to
the left lateral thigh. Worsened this morning. Has had some ongoing bruising in the weeks since surgery. No chest pain shortness of breath.
Past History
<David Hernandez Jr., PA-C - Last Filed: 11/30/24 11:09>
Past History
ED Past Medical History: HTN and Hypercholesterolemia
ED Past Surgical History: Orthopedic and Tonsilectomy
Social History
Tobacco: Non-smoker
Review of Systems
<David Hernandez Jr., PA-C - Last Filed: 11/30/24 11:09>
Review of Systems
Allergies reviewed?: Yes
All Other Systems: ROS reviewed and negative except as documented in HPI and ROS
Phy Exam
<David Hernandez Jr., PA-C - Last Filed: 11/30/24 11:09>
Physical Exam
Physical Exam:
GENERAL: Alert , in no apparent distress
EYE: pupils equal and reactive
NECK: Supple, no significant adenopathy.
ENT: o/p clr, mmm.
CARDIAC: Regular rate and rhythm .
LUNGS: Clear breath sounds bilaterally, no acute respiratory distress, no wheezes/rales/rhonchi
ABDOMEN: Soft, without focal tenderness, no r/g, no cvat
NEUROLOGICAL: Alert and oriented, no focal neuro deficits
SKIN: Warm and dry, skin intact.
MUSCULOSKELETAL: Ecchymosis throughout the left lower extremity including the thigh knee and proximal lower leg. Some mild tenderness palpation to the left lateral thigh increased discomfort with movement of the knee. Some vague firmness to the
left lateral thigh.. Distally normal distal pulses dorsalis pedis and posterior tibialis. Normal skin tone distally. No pallor or paresthesia or poikilothermia. , well perfused.
PSYCH: Normal and appropriate interaction.
Course
<David Hernandez Jr., PA-C - Last Filed: 11/30/24 11:09>
Orders/Labs/Results
Orders:
Orders
11/30/24 08:17
Urinalysis Reflex To Culture Urgent
Date Specimen was Collected: 11/30/24
Time Specimen was Collected: 11:02
Venous Doppler Lwr Ext Left [US Periph Venous LOWER Ext LT] Urgent
Comment:
Reason For Exam: thigh swelling
11/30/24 08:25
CBC/With Diff [Complete Blood Count/With Diff] Urgent
CMP [Comprehensive Metabolic Panel] Urgent
Lactic Acid Urgent
11/30/24 11:07
Oxycodone/Acetaminophen [Percocet 5/325] 1 tablet PO NOW STA
Abnormal Lab Results
11/30/24
08:25
WBC 11.5 H 10^3/uL
(4.8-10.8)
RBC 3.20 L 10^6/uL
(4.70-6.10)
Hgb 10.7 L g/dL
(13.0-18.0)
Hct 31.7 L %
(39.0-52.0)
MCV 99.1 H fL
(80.0-94.0)
MCH 33.4 H pg
(27.0-31.0)
Abs Immat Gran (auto) 0.1 H 10^3/uL
(0-0.05)
Absolute Neuts (auto) 8.0 H 10^3/uL
(1.4-6.5)
Absolute Monos (auto) 1.2 H 10^3/uL
(0.1-0.6)
Lymphocytes % 15.8 L %
(20.5-51.1)
Monocytes % 10.0 H %
(1.7-9.3)
Sodium 134 L mmol/L
(135-145)
Glucose 124 H mg/dl
(70-99)
Total Bilirubin 1.5 H mg/dl
(0.2-1.3)
11/30/24 08:25
11/30/24 08:25
Vital Signs
Initial and Last Documented VS:
Initial Vital Signs
Temp Pulse Resp BP Pulse Ox
98.3 F 60 16 142/64 98
11/30/24 08:10 11/30/24 08:10 11/30/24 08:10 11/30/24 08:10 11/30/24 08:10
Last Documented Vital Signs
Temp Pulse Resp BP Pulse Ox
98.3 F 60 16 142/64 98
11/30/24 08:10 11/30/24 08:10 11/30/24 08:10 11/30/24 08:10 11/30/24 08:10
<Toby Odom, DO - Last Filed: 11/30/24 10:55>
Orders/Labs/Results
Orders:
Orders
11/30/24 08:17
Urinalysis Reflex To Culture Urgent
Date Specimen was Collected: 11/30/24
Time Specimen was Collected: 11:02
Venous Doppler Lwr Ext Left [US Periph Venous LOWER Ext LT] Urgent
Comment:
Reason For Exam: thigh swelling
11/30/24 08:25
CBC/With Diff [Complete Blood Count/With Diff] Urgent
CMP [Comprehensive Metabolic Panel] Urgent
Lactic Acid Urgent
11/30/24 11:07
Oxycodone/Acetaminophen [Percocet 5/325] 1 tablet PO NOW STA
Abnormal Lab Results
11/30/24
08:25
WBC 11.5 H 10^3/uL
(4.8-10.8)
RBC 3.20 L 10^6/uL
(4.70-6.10)
Hgb 10.7 L g/dL
(13.0-18.0)
Hct 31.7 L %
(39.0-52.0)
MCV 99.1 H fL
(80.0-94.0)
MCH 33.4 H pg
(27.0-31.0)
Abs Immat Gran (auto) 0.1 H 10^3/uL
(0-0.05)
Absolute Neuts (auto) 8.0 H 10^3/uL
(1.4-6.5)
Absolute Monos (auto) 1.2 H 10^3/uL
(0.1-0.6)
Lymphocytes % 15.8 L %
(20.5-51.1)
Monocytes % 10.0 H %
(1.7-9.3)
Sodium 134 L mmol/L
(135-145)
Glucose 124 H mg/dl
(70-99)
Total Bilirubin 1.5 H mg/dl
(0.2-1.3)
11/30/24 08:25
11/30/24 08:25
Vital Signs
Initial and Last Documented VS:
Initial Vital Signs
Temp Pulse Resp BP Pulse Ox
98.3 F 60 16 142/64 98
11/30/24 08:10 11/30/24 08:10 11/30/24 08:10 11/30/24 08:10 11/30/24 08:10
Last Documented Vital Signs
Temp Pulse Resp BP Pulse Ox
98.3 F 60 16 142/64 98
11/30/24 08:10 11/30/24 08:10 11/30/24 08:10 11/30/24 08:10 11/30/24 08:10
<David Hernandez Jr., PA-C - Last Filed: 11/30/24 11:09>
MDM/Problems Addressed
MDM/Problems Addressed:
74-year-old male presenting to the emergency department today with concerns of swelling and discomfort to the left lateral thigh seemingly worse this morning. Has been holding Eliquis due to hematuria recently after total knee replacement 3 weeks
ago. Distal neurovascular examination normal of the left leg. Patient does have significant swelling and ecchymosis to the left lateral thigh. Ultrasound performed that showed hematoma but no evidence of DVT. No evidence of compartment syndrome
stable for outpatient follow-up return precautions given.
<David Hernandez Jr., PA-C - Last Filed: 11/30/24 11:09>
*Critical Care Note
Total Time (30-74mins, 75-104mins- exclusive of procedures): Not Applicable
ED Attending Note
<David Hernandez Jr., PA-C - Last Filed: 11/30/24 11:09>
-
Portions of this chart may have been created with voice recognition software.� Occasional wrong word or��sound alike� substitutions may have occurred due to the inherent limitations of voice recognition software.
<Toby Odom DO - Last Filed: 11/30/24 10:55>
ED Attending Note
Patient seen and examined by attending physician: Yes
ED Attending Note:
I have reviewed and agree with history and treatment plan by iNck Hernandez. My exam revealed sutures and dressing intact left knee, clean and dry. Ecchymosis left upper and lower leg, soft compartments, no numbness, normal distal pulses. Do not
suspect compartment syndrome. No active bleeding seen on ultrasound. Patient will hold Eliquis. He states he never wants to take it again. Instructed patient to follow-up with his orthopedist at [facility] who performed his surgery and
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
Discharge Plan
Departure
Patient Disposition: Home (Routine Discharge)
Date of Disposition: 11/30/24
Time of Disposition: 11:07
Patient with high blood pressure during this ER visit?: No
Condition: Good
Covid-19: Not Applicable
Discharge Problem:
Hematoma of leg
Instructions: Hematoma
Prescriptions:
New
oxycodone-acetaminophen [Percocet] 5-325 mg tablet
1 tab PO Q8H PRN (Reason: Pain) Qty: 7 0RF
No Action
acetaminophen 325 MG tablet
650 mg PO Q4HPRN PRN (Reason: mild pain)
flecainide 50 MG tablet
50 mg PO BID
metoprolol tartrate 50 MG tablet
50 mg PO BID
rosuvastatin 10 MG tablet
10 mg PO DAILY
Eliquis 5 MG tablet
5 mg PO BID
amlodipine 5 mg Tablet
5 mg PO DAILY
morphine 30 mg Tablet Extended Release
30 mg PO Q8H
famotidine 20 mg Tablet
20 mg PO DAILY
hydrochlorothiazide 25 mg Tablet
25 mg PO DAILY
budesonide-formoterol [Symbicort] 160-4.5 mcg/actuation Hfa Aerosol Inhaler
2 puff INHALATION R BID
diphenhydramine HCl 25 mg Capsule
25 mg PO Q6HPRN PRN (Reason: itching) Qty: 20 0RF
loratadine 10 mg Tablet
10 mg PO HS Qty: 4 0RF
methylprednisolone [Medrol] 4 mg tablet
4 mg PO DIRECTED Qty: 10 0RF
Rx Instructions:
16mg (4tabs) day1, 12mg (3tabs) day2, 8mg (2tabs) day3, 4mg (1tab) day4, then stop
Referrals:
Sathish Ernandez MD [Family Provider] -
Activity Restrictions/Additional Instructions:
You came to the emergency department today with concerns of thigh swelling and discomfort. You are found have a hematoma on ultrasound but no emergent findings. Please use warm compresses and engage in light activity as able. Return for any
worsening, new or concerning symptoms.
Interventions
Interventions:
*Risk Screen - Suicide Last Done: 11/30/24 08:18
*Neglect/Abuse Screening Last Done: 11/30/24 08:18
Discharge Date and Time
Print Language: GUINEAN
[2024-11-30 08:43] LABS: Lactic Acid 1.3 mmol/L (0.7-2.0)
[2024-11-30 08:50] LABS: ALT (SGPT) 16 U/L (0-50); AST (SGOT) 27 U/L (17-59); Albumin 3.7 g/dl (3.5-5.0); Alkaline Phosphatase 74 U/L (38-126); Blood Urea Nitrogen 15 mg/dl (9-20); Calcium 8.4 mg/dl (8.4-10.2); Carbon Dioxide 25 mmol/L (22-30); Chloride 100 mmol/L (98-107); Glucose 124 mg/dl (70-99); Potassium 3.9 mmol/L (3.5-5.1); Sodium 134 mmol/L (135-145); Total Bilirubin 1.5 mg/dl (0.2-1.3); Total Protein 6.7 g/dl (6.3-8.2); eGFR > 60.00
[2024-11-30] MEDS: PERCOCET 5/325 1 TABLET PO (11:23)
== END 2024-11-30 11:34 | disposition home or self-care (01) ==
LOC: EMR 08:06
PROVIDERS: Physician Assistant; EMERGENCY PHYSICIAN Emergency Medicine; FAMILY PHYSICIAN Family Medicine
DX: S70.12XA Contusion of left thigh, initial encounter (principal); X58.XXXA Exposure to other specified factors, initial encounter; I48.91 Unspecified atrial fibrillation; I10 Essential (primary) hypertension; Z79.01 Long term (current) use of anticoagulants; Z96.652 Presence of left artificial knee joint
CPT/HCPCS: 99284; 80053; 83605; 85025; 93971

== ENCOUNTER 2025-01-10 14:43 | Emergency (ER) | payer MEDICARE, OTHER, SELFPAY ==
--- NOTE | 2025-01-10 16:33 | ED.GENMED ---
History of Present Illness
General
Chief Complaint: Fall
Source: patient
Exam Limitations: none
Time Seen by Provider: 01/10/25 16:19
Nursing documentation reviewed up to this point in time: agreed with
History of Present Illness
History of Present Illness:
Patient presents to ED after falling forward, after he missed a step. Patient is currently on Eliquis secondary to atrial fibrillation. Patient has injury to right side of his head, right knee laceration, as well as left thumb injury. Patient
unsure of his last tetanus vaccination. Patient denies syncope. Denies headache. Denies neck pain. Denies nausea or vomiting. Denies loss of sensation or weakness.
Past History
Past History
ED Past Medical History: HTN and Hypercholesterolemia
ED Past Surgical History: Orthopedic and Tonsilectomy
Social History
Tobacco: Non-smoker
Review of Systems
Review of Systems
Allergies reviewed?: Yes
All Other Systems: ROS reviewed and negative except as documented in HPI and ROS
Constitutional: Reports no symptoms; Denies fever
Respiratory: Reports no symptoms; Denies trouble breathing
Cardiac: Reports no symptoms; Denies chest pain, palpitations or syncope
Musculoskeletal: Reports no symptoms
Skin: Reports other (leg/finger/scalp laceration)
Neurological: Reports no symptoms; Denies dizzy, headache or numbness
Phy Exam
Physical Exam
Physical Exam:
Physical Exam
General: no apparent distress, not acutely ill. afebrile
Head: an approx 1cm superficial laceration noted over right temporal scalp without active bleeding
Neck: supple. normal range of motion.
Heart: s1/s2 regular rate and rhythm, no murmur.
Lungs: no acute respiratory distress. clear bilaterally
Abdomen: normal bowel sounds. not tender.
Neuro: alert and oriented x 3. no focal neurological deficits
Skin: an approx 4cm superficial laceration noted below right patella, without active bleeding
Psychiatric: well kept. interactive and cooperative
Extremities: no edema. no calf tenderness.
Course
Orders/Labs/Results
Orders:
Orders
01/10/25 14:[address] [CT Head W/o Iv Contrast] Urgent
Comment:
Reason For Exam: head strike +thinners
01/10/25 16:30
Acetaminophen [Tylenol] 650 mg PO NOW STA
Tetanus/Diphth/Acelpertussis [Adacel] 0.5 ml IM .ONCE ONE
01/10/25 18:08
Type+Screen Urgent
Electrocardiogram (*1) Urgent
Reason for Study: Chest Pain
EKG- Treatment ONCE
Basic Metabolic Panel Urgent
Complete Blood Count/No Diff Urgent
PTT Urgent
Prothrombin Time Urgent
01/10/25 18:18
CeFAZolin 1 GRAM [Ancef] 1 gram in 5 ml IV NOW
01/10/25 18:23
Levetiracetam Injectable [Keppra] 1,000 mg IV NOW STA
01/10/25 18:28
Prothrombin Complex(Pcc),Human [Kcentra] 2,017 unit Empty Viaflex Container 100 ml [Viaflex Empty Container] 80 ml IV NOW
Does patient have a dx of serious acute active bleeding?: Yes
Does patient have prior history of HIT?: No
Urgent surgery/invasive procedure planned in next 6 hours?: No
01/10/25 18:32
ABO2 Urgent
BBK Wristband Number:
Associate notified that ABO2 has been ordered: [id number]
Date: 01/10/25
Time: 18:26
Personal Injury Paralegal ID: [id number]
01/10/25 18:33
Cervical Collar- Treatment ONCE
Collar Type: Hard Cervical Collar
Abnormal Lab Results
01/10/25
18:08
RBC 3.61 L 10^6/uL
(4.70-6.10)
Hgb 11.5 L g/dL
(13.0-18.0)
Hct 35.4 L %
(39.0-52.0)
MCV 98.1 H fL
(80.0-94.0)
MCH 31.9 H pg
(27.0-31.0)
MCHC 32.5 L g/dL
(33.0-37.0)
PT 16.5 H Sec
(11.4-14.6)
APTT 47.8 H Sec
(23.4-35.0)
Sodium 134 L mmol/L
(135-145)
BUN 26 H mg/dl
(9-20)
Glucose 110 H mg/dl
(70-99)
01/10/25 18:08
01/10/25 18:08
Vital Signs
Initial and Last Documented VS:
Initial Vital Signs
Temp Pulse Resp Pulse Ox
98.4 F 73 18 99
01/10/25 14:45 01/10/25 14:45 01/10/25 14:45 01/10/25 14:45
Last Documented Vital Signs
Temp Pulse Resp BP Pulse Ox
98.4 F 67 13 143/54 99
01/10/25 14:45 01/10/25 19:00 01/10/25 19:00 01/10/25 19:00 01/10/25 18:13
Procedures
Laceration Closure
Right Knee:
Status of Wound: clean
Size of Wound in cm: 5
Description of Wound Edges: sharp
Preparation: cleaned with saline
Anesthesia: 1% Lidocaine with epi
Revision/Debridement: routine- no revision
Type of Closure: single layer closure
Skin Closure Material: 4-0 prolene
Number of sutures: 15
MDM/Problems Addressed
MDM/Problems Addressed:
CT head findings reviewed and discussed with patient and spouse. Request transfer to [facility] for further evaluation and treatment. Will discuss with trauma attending at [facility] regarding potential reversal of Eliquis via
Kcentra.
Discussed with ([facility] trauma attending) who agreed to accept patient for transfer. Requests reversal of Eliquis via Kcentra as well as Keppra, along with placement of c-collar.
Pt remains hemodynamically and neurologically intact during observation.
Critical care statement: A total of 40 minutes of critical care time was provided for this patient. This includes management of unstable vital signs, evaluation of the patient at bedside, reviewing the patient's pertinent medical records, discussion
with consultants, review of old EKGs and review of pertinent medical records. This time with separate from time utilized to perform the aforementioned documented procedures
*Critical Care Note
Total Time (30-74mins, 75-104mins- exclusive of procedures): 40 min
ED Attending Note
-
Portions of this chart may have been created with voice recognition software.� Occasional wrong word or��sound alike� substitutions may have occurred due to the inherent limitations of voice recognition software.
Discharge Plan
Departure
Patient Disposition: Acute Care Hospital
Date of Disposition: 01/10/25
Time of Disposition: 18:30
Discharge Problem:
Acute subdural hematoma, Knee laceration
Prescriptions:
No Action
acetaminophen 325 MG tablet
650 mg PO Q4HPRN PRN (Reason: mild pain)
flecainide 50 MG tablet
50 mg PO BID
metoprolol tartrate 50 MG tablet
50 mg PO BID
rosuvastatin 10 MG tablet
10 mg PO DAILY
Eliquis 5 MG tablet
5 mg PO BID
amlodipine 5 mg Tablet
5 mg PO DAILY
morphine 30 mg Tablet Extended Release
30 mg PO Q8H
famotidine 20 mg Tablet
20 mg PO DAILY
hydrochlorothiazide 25 mg Tablet
25 mg PO DAILY
budesonide-formoterol [Symbicort] 160-4.5 mcg/actuation Hfa Aerosol Inhaler
2 puff INHALATION R BID
diphenhydramine HCl 25 mg Capsule
25 mg PO Q6HPRN PRN (Reason: itching) Qty: 20 0RF
loratadine 10 mg Tablet
10 mg PO HS Qty: 4 0RF
methylprednisolone [Medrol] 4 mg tablet
4 mg PO DIRECTED Qty: 10 0RF
Rx Instructions:
16mg (4tabs) day1, 12mg (3tabs) day2, 8mg (2tabs) day3, 4mg (1tab) day4, then stop
oxycodone-acetaminophen [Percocet] 5-325 mg tablet
1 tab PO Q8H PRN (Reason: Pain) Qty: 7 0RF
Referrals:
Sathish Ernandez MD [Family Provider] -
Hospital Transfer
Other hospital: [facility]
I certify that the patient requires transfer: Yes
Discussed case with accepting physician:
Reason for transfer: higher level of care, medical necessity, availability of service and specialties available
Interventions
Interventions:
*Risk Screen - Suicide Last Done: 01/10/25 14:45
*General Assessment Last Done: 01/10/25 14:45
*Neglect/Abuse Screening Last Done: 01/10/25 14:47
*ED- Fall Risk Assessment Last Done: 01/10/25 19:15
*ED COVID-19 Vaccine History Last Done: 01/10/25 18:27
*Nursing Disposition Last Done: 01/10/25 19:15
ED-Musculoskeletal Assessment Last Done: 01/10/25 18:12
ED- Neurological Assessment Last Done: 01/10/25 18:58
ED-Skin Assessment Last Done: 01/10/25 16:10
Discharge Date and Time
Discharge Date/Time: 01/10/25 19:15
Print Language: IVORIAN
[2025-01-10] MEDS: TYLENOL 650 MG PO (16:36)
[2025-01-10] MEDS: ADACEL 0.5 ML IM (16:37)
[2025-01-10 18:10] VITALS: BMI 21.7
[2025-01-10 18:11] VITALS: BP 140/57
[2025-01-10 18:13] VITALS: BP 140/57
[2025-01-10 18:15] VITALS: BP 146/59
[2025-01-10 18:19] LABS: Hematocrit 35.4 % (39.0-52.0); Hemoglobin 11.5 g/dL (13.0-18.0); Mean Corp Hgb Conc. 32.5 g/dL (33.0-37.0); Mean Corpuscular Hgb 31.9 pg (27.0-31.0); Mean Corpuscular Volume 98.1 fL (80.0-94.0); Mean Platelet Volume 8.9 fL (7.4-10.4); Platelet Count 244 10^3/uL (130-400); Red Blood Cell Count 3.61 10^6/uL (4.70-6.10); Red Cell Dist. Width 12.6 % (11.5-14.5); White Blood Cell Count 7.9 10^3/uL (4.8-10.8)
[2025-01-10 18:30] LABS: INR 1.28; PT 16.5 Sec (11.4-14.6)
[2025-01-10 18:32] LABS: APTT 47.8 Sec (23.4-35.0)
[2025-01-10 18:38] LABS: Blood Urea Nitrogen 26 mg/dl (9-20); Carbon Dioxide 22 mmol/L (22-30); Chloride 103 mmol/L (98-107); Estimated Creatinine Clearance 92 ml/min; Glucose 110 mg/dl (70-99); Potassium 4.1 mmol/L (3.5-5.1); Sodium 134 mmol/L (135-145); eGFR > 60.00
[2025-01-10 18:45] VITALS: BP 139/55
[2025-01-10] MEDS: ANCEF 5 IV (18:53)
[2025-01-10] MEDS: KEPPRA 1000 MG IV (18:53)
[2025-01-10] MEDS: KCENTRA 80 UNIT IV (18:54)
[2025-01-10 19:00] VITALS: BP 143/54
== END 2025-01-10 19:15 | disposition short-term general hospital (02) ==
LOC: EMR 14:43
PROVIDERS: EMERGENCY PHYSICIAN Emergency Medicine; FAMILY PHYSICIAN Family Medicine
DX: S06.5XAA Traumatic subdural hemorrhage with loss of consciousness status unknown, initial encounter (principal); S81.011A Laceration without foreign body, right knee, initial encounter; S69.92XA Unspecified injury of left wrist, hand and finger(s), initial encounter; W10.9XXA Fall (on) (from) unspecified stairs and steps, initial encounter; I10 Essential (primary) hypertension; E78.00 Pure hypercholesterolemia, unspecified; I48.91 Unspecified atrial fibrillation; Z79.01 Long term (current) use of anticoagulants; Z23 Encounter for immunization
CPT/HCPCS: 12002; 96374; 96375; 90471; 99291; 70450; 80048; 85027; 85610; 85730; 86850; 86900; 86901; 90715; 93005

== ENCOUNTER → 2025-04-03 07:20 | Outpatient (REF) | payer MEDICARE, OTHER, SELFPAY ==
[2025-04-03 09:33] LABS: % Basophils 0.9 % (0-2); % Eosinophils 4.2 % (0-6); % Immature Granulocytes 0.2 % (0-0.5); % Lymphocytes 34.5 % (20.5-51.1); % Monocytes 14.9 % (1.7-9.3); % Neutrophils 45.3 % (42.2-75.2); Absolute Basophils 0.1 10^3/uL (0-0.2); Absolute Eosinophils 0.2 10^3/uL (0-0.7); Absolute Monocytes 0.8 10^3/uL (0.1-0.6); Absolute Neutrophils 2.6 10^3/uL (1.4-6.5); Hematocrit 38.5 % (39.0-52.0); Hemoglobin 12.7 g/dL (13.0-18.0); Mean Corpuscular Hgb 31.6 pg (27.0-31.0); Mean Corpuscular Volume 95.8 fL (80.0-94.0); Mean Platelet Volume 9.5 fL (7.4-10.4); Nucleated Red Blood Cells % 0 % (-); Platelet Count 212 10^3/uL (130-400); Red Blood Cell Count 4.02 10^6/uL (4.70-6.10); White Blood Cell Count 5.7 10^3/uL (4.8-10.8)
[2025-04-03 10:42] LABS: ALT (SGPT) 21 U/L (0-50); AST (SGOT) 23 U/L (17-59); Albumin 4.4 g/dl (3.5-5.0); Alkaline Phosphatase 65 U/L (38-126); Blood Urea Nitrogen 29 mg/dl (9-20); Calcium 9.5 mg/dl (8.4-10.2); Carbon Dioxide 23 mmol/L (22-30); Chloride 108 mmol/L (98-107); Glucose 102 mg/dl (70-99); HDL Cholesterol 59 mg/dl; LDL Cholesterol, Calculated 60 mg/dl; Potassium 4.6 mmol/L (3.5-5.1); Sodium 139 mmol/L (135-145); Total Bilirubin 0.8 mg/dl (0.2-1.3); Total Cholesterol 130 mg/dl (50-199); Total Protein 7.2 g/dl (6.3-8.2); Triglyceride 55 mg/dl (10-149); Very Low Density Lipoprotein 11 mg/dl (0-30); eGFR > 60.00
[2025-04-03 11:00] LABS: Folate 14.4 ng/ml (2.76-20); Vitamin B12 960 pg/ml (239-931)
== END ==
LOC: HWLAB 07:20
PROVIDERS: ATTENDING PHYSICIAN Family Medicine
DX: I10 Essential (primary) hypertension (principal); E53.8 Deficiency of other specified B group vitamins; Z00.00 Encounter for general adult medical examination without abnormal findings; R71.8 Other abnormality of red blood cells; R53.83 Other fatigue
CPT/HCPCS: 36415; 80053; 80061; 82607; 82746; 85025

== ENCOUNTER 2025-04-06 22:44 | Emergency (ER) | payer MEDICARE, OTHER, SELFPAY ==
[2025-04-06 22:46] VITALS: BP 171/69
--- NOTE | 2025-04-06 23:37 | EDRN ---
pressure. Pt has NSS wet dressing applied to R lower leg. Tetanus 3 months ago
--- NOTE | 2025-04-07 01:11 | ED.SKININJ ---
HPI-Injury
General
Chief Complaint: Skin Surface Trauma
Source: patient and spouse
Exam Limitations: none
Time Seen by Provider: 04/07/25 00:04
Nursing documentation reviewed up to this point in time: agreed with
History of Present Illness-Injury
Is this injury a work related problem?: No
Is pt an associate of [facility]/[place]?: No
Initial Injury comments:
74-year-old male presents emergency department complaining of laceration and skin tear on right lower leg from recliner chair. He scraped it on the metal portion of the recliner.
Past History
Past History
ED Past Medical History: HTN and Hypercholesterolemia
ED Past Surgical History: Orthopedic and Tonsilectomy
Social History
Tobacco: Non-smoker
Alcohol: None
Drug: None
Personal:
Living: with family
Employment: Retired
Review of Systems
Review of Systems
Allergies reviewed?: Yes
All Other Systems: Not applicable
Constitutional: Reports no symptoms
EENT: Reports no symptoms
Respiratory: Reports no symptoms
Cardiac: Reports no symptoms
ABD/GI: Reports no symptoms
: Reports no symptoms
Musculoskeletal: Reports no symptoms
Skin: Reports other (Laceration)
Neurological: Reports no symptoms
Endocrine: Reports no symptoms
Hematologic/Lymphatic: Reports no symptoms
Psychiatric: Reports no symptoms
Skin Exam
Laceration
Right Lower Leg:
Length in cm: 21
Orientation: C shaped
Type of Laceration: complex
Any active bleeding?: low grade venous oozing
Distal skin color and temperature: normal-warm & good color
Normal distal neurovascular exam: Yes
Range of motion: full
Phy Exam
Physical Exam
Physical Exam:
Physical Exam
General: no apparent distress, not acutely ill
Neck: supple. no meningeal signs. normal posterior pharynx
Heart: equal radial pulses.
HEENT: Pupils equal round reactive to light, EOMI
Lungs: no acute respiratory distress.
Abdomen: normal bowel sounds. not tender. no CVAT
Neuro: alert and oriented. no focal neurological deficits
Skin: no rash, laceration as above
Psychiatric: well kept. interactive and cooperative
Extremities: no edema. no calf tenderness. negative homans. good distal pulses
Course
Vital Signs
Initial and Last Documented VS:
Initial Vital Signs
Temp Pulse Resp BP Pulse Ox
98.9 F 62 18 171/69 98
04/06/25 22:46 04/06/25 22:46 04/06/25 22:46 04/06/25 22:46 04/06/25 22:46
Last Documented Vital Signs
Temp Pulse Resp BP Pulse Ox
98.9 F 62 18 171/69 98
04/06/25 22:46 04/06/25 22:46 04/06/25 22:46 04/06/25 22:46 04/06/25 22:46
Procedures
Laceration Closure
Right Lower Leg:
Status of Wound: clean
Size of Wound in cm: 21
Description of Wound Edges: flap-poorly vascularized and macerated
Preparation: cleaned with saline
Anesthesia: 1% Lidocaine with epi
Revision/Debridement: minor revision
Wound exploration: explored to base- no FB
Type of Closure: single layer closure
Skin Closure Material: 4-0 nylon
Number of sutures: 20
MDM/Problems Addressed
Differential Diagnosis Includes:
Laceration, fracture
MDM/Problems Addressed:
74-year-old male with right lower leg laceration from recliner chair, wound revised, immunization, tetanus up-to-date.
*Pulse Oximetry
Patient hypoxic: no (98%)
*Critical Care Note
Total Time (30-74mins, 75-104mins- exclusive of procedures): Not Applicable
Patient Management
Social determinants of health affecting care: Living situation and Strong social support
Escalation/DeEscalation of care consider admission/obs:
Admit not indicated
ED Attending Note
-
Portions of this chart may have been created with voice recognition software.� Occasional wrong word or��sound alike� substitutions may have occurred due to the inherent limitations of voice recognition software.
Discharge Plan
Departure
Patient Disposition: Home (Routine Discharge)
Date of Disposition: 04/07/25
Time of Disposition: 01:17
Patient with high blood pressure during this ER visit?: Yes
Condition: Good
Discharge Problem:
Laceration of right lower leg
Instructions: Laceration Repair With Stitches ([place]), [facility], BLOOD PRESSURE
Prescriptions:
No Action
acetaminophen 325 MG tablet
650 mg PO Q4HPRN PRN (Reason: mild pain)
flecainide 50 MG tablet
50 mg PO BID
metoprolol tartrate 50 MG tablet
50 mg PO BID
rosuvastatin 10 MG tablet
10 mg PO DAILY
Eliquis 5 MG tablet
5 mg PO BID
amlodipine 5 mg Tablet
5 mg PO DAILY
morphine 30 mg Tablet Extended Release
30 mg PO Q8H
famotidine 20 mg Tablet
20 mg PO DAILY
hydrochlorothiazide 25 mg Tablet
25 mg PO DAILY
budesonide-formoterol [Symbicort] 160-4.5 mcg/actuation Hfa Aerosol Inhaler
2 puff INHALATION R BID
diphenhydramine HCl 25 mg Capsule
25 mg PO Q6HPRN PRN (Reason: itching) Qty: 20 0RF
loratadine 10 mg Tablet
10 mg PO HS Qty: 4 0RF
methylprednisolone [Medrol] 4 mg tablet
4 mg PO DIRECTED Qty: 10 0RF
Rx Instructions:
16mg (4tabs) day1, 12mg (3tabs) day2, 8mg (2tabs) day3, 4mg (1tab) day4, then stop
oxycodone-acetaminophen [Percocet] 5-325 mg tablet
1 tab PO Q8H PRN (Reason: Pain) Qty: 7 0RF
Referrals:
Sathish Ernandez MD [Family Provider, Family Practice] - Call in 1-3 days for appt
Activity Restrictions/Additional Instructions:
Suture removal in 10 to 14 days
Interventions
Interventions:
*Risk Screen - Suicide Last Done: 04/06/25 22:46
*General Assessment Last Done: 04/06/25 22:46
*Neglect/Abuse Screening Last Done: 04/06/25 22:46
*ED- Fall Risk Assessment Last Done: 04/06/25 22:46
*ED COVID-19 Vaccine History Last Done: 04/06/25 22:46
ED-Skin Assessment Last Done: 04/06/25 23:35
Discharge Date and Time
Print Language: CENTRAL AFRICAN
[2025-04-07 01:35] VITALS: BP 146/61
== END 2025-04-07 01:35 | disposition home or self-care (01) ==
LOC: EMR 22:44
PROVIDERS: EMERGENCY PHYSICIAN Emergency Medicine; FAMILY PHYSICIAN Family Medicine
DX: S81.811A Laceration without foreign body, right lower leg, initial encounter (principal); W22.8XXA Striking against or struck by other objects, initial encounter; I10 Essential (primary) hypertension; E78.00 Pure hypercholesterolemia, unspecified; I48.91 Unspecified atrial fibrillation; J44.9 Chronic obstructive pulmonary disease, unspecified; G47.30 Sleep apnea, unspecified; M54.50 Low back pain, unspecified; G89.29 Other chronic pain; Z96.653 Presence of artificial knee joint, bilateral; Z79.01 Long term (current) use of anticoagulants; Z88.1 Allergy status to other antibiotic agents
CPT/HCPCS: 12006; 99282

== ENCOUNTER → 2025-06-07 11:15 | Outpatient (REF) | payer MEDICARE, OTHER, SELFPAY ==
[2025-06-07 15:55] LABS: Hematocrit 36.9 % (39.0-52.0); Hemoglobin 12.3 g/dL (13.0-18.0); Mean Corp Hgb Conc. 33.3 g/dL (33.0-37.0); Mean Corpuscular Volume 95.8 fL (80.0-94.0); Nucleated Red Blood Cells % 0 % (-); Platelet Count 234 10^3/uL (130-400); Red Cell Dist. Width 12.5 % (11.5-14.5)
[2025-06-07 16:24] LABS: ALT (SGPT) 18 U/L (0-50); AST (SGOT) 22 U/L (17-59); Albumin 4.4 g/dl (3.5-5.0); Alkaline Phosphatase 74 U/L (38-126); Blood Urea Nitrogen 30 mg/dl (9-20); Calcium 9.4 mg/dl (8.4-10.2); Carbon Dioxide 22 mmol/L (22-30); Chloride 105 mmol/L (98-107); Glucose 102 mg/dl (70-99); Iron 99 ug/dl (49-181); Potassium 5.0 mmol/L (3.5-5.1); Sodium 135 mmol/L (135-145); Total Protein 7.5 g/dl (6.3-8.2); eGFR > 60.00
[2025-06-07 16:34] LABS: Total Iron Binding Capacity 332 ug/dl (261-462)
[2025-06-07 16:45] LABS: Ferritin 38.8 ng/ml (17.9-464.0)
== END ==
LOC: HWLAB 11:15
PROVIDERS: ATTENDING PHYSICIAN Physician Assistant Medical
DX: D69.2 Other nonthrombocytopenic purpura (principal); D64.9 Anemia, unspecified; I87.2 Venous insufficiency (chronic) (peripheral); R60.0 Localized edema; Z68.23 Body mass index [BMI] 23.0-23.9, adult
CPT/HCPCS: 36415; 80053; 82728; 83540; 83550; 84443; 85025